=== PATIENT | female | born 1955 | race Two or more races ===

== ENCOUNTER 2016-07-01 12:11 | Inpatient (IN) | payer OTHER ==
--- NOTE | ~2016-07-01 | OR ---
Unit #: [id number] #: [id number] Patient: SCARLETT HALL [id number] [address] [address] [id number] I MR#: [id number] NAME: SCARLETT HALL. ROOM: 477 Date of Procedure: 07/01/2016 Admission Date: 07/01/2016 Surgeon: Parminder Joel M.D. : 1955 Attending Physician: Parminder Joel M.D. Primary Care Physician: Ernie Arevalo M.D. OPERATIVE REPORT PRIMARY CARE PHYSICIAN Dr. Arevalo. PREOPERATIVE DIAGNOSIS Posterior horseshoe perianal abscess. POSTOPERATIVE DIAGNOSIS Posterior horseshoe perianal abscess. PROCEDURES PERFORMED Incision and drainage. Aerobic and anaerobic cultures taken ANESTHESIA General endotracheal anesthesia. ESTIMATED BLOOD LOSS 30 mL. INDICATIONS FOR PROCEDURE A 61-year-old female with diabetes, who presents to the ER with pain and on examination, she has an abscess in the posterior midline that encircles the posterior half of the perianal area in a horseshoe fashion. DESCRIPTION OF PROCEDURE The patient was transported from the emergency room to the operating room, and after induction of general endotracheal anesthesia, she was placed in lithotomy position, prepped and draped in usual sterile fashion. On digital rectal examination, I felt the extent of the abscess and it extended from 9 o'clock to 3 o'clock around the anal verge posteriorly. On either side of the perianal area in the posterior lateral position, an incision was made. I used a hemostat to enter into the abscess cavity and a large amount of gross purulent material was returned. I digitalized the abscess cavities completely to mobilize the abscess and break down any loculations. I copiously and forcefully irrigated the area and then packed the abscess cavity with Kerlix soaked in Betadine. Anna-Pad and fishnet pants were placed. Sponges and needle counts were correct x3. The patient tolerated the procedure well and transported to recovery in stable condition. There was no family to discuss the findings with. Postoperatively, the patient will be admitted to the hospital for IV antibiotics and initiation of dressing changes in the morning. Unit #: [id number] #: [id number] Patient: SCARLETT HALL Dictated by... Naveed Lewis/liliya TD: 07/02/2016 05:46 JOB #: [id number] OPERATIVE REPORT Page 1 of 1 X Parminder Joel MD PROCEDURE OPERATIVE NOTE
--- NOTE | ~2016-07-01 | CR63 ---
[facility] A Service of [facility] RADIOLOGY TEXT RESULTS PATIENT: SCARLETT HALL LOCATION: [place] [address]- : [birth year] UNIT #: [id number] AGE: [address]: Parminder Joel MD SEX: F ORDER DR: [id number] [facility] [address] [facility]. [place], [place] [address] [id number] I MR#: [id number] Acc #: [id number] NAME: SCARLETT HALL. : 1955 SEX: F STUDY DATE/TIME: 07/03/2016 12:41 UNIT: [facility] ROOM: [facility] STUDY DESCRIPTION: CR Chest 2 View Attending Physician: Parminder Joel M.D. Ordering Physician: Parminder Joel M.D. Primary Care Physician: Ernie Arevalo M.D. MEDICAL IMAGING REPORT This report is preliminary unless electronic signature is present EXAM Chest x-ray HISTORY Shortness breath and fever, onset today. TECHNIQUE 2 views of the chest were obtained and compared with 11/11/2012. FINDINGS PA and lateral examination of the chest upright shows a good expansion of the parenchyma with a normal distribution of the pulmonary vascularity. There is no indication of congestion, effusion, infiltrate, tumor, or nodular density. The pleural reflections and diaphragmatic contours are normal. The cardiac silhouette and mediastinal anatomy is within normal limits. IMPRESSION Normal chest. Dictated by... Parminder Coronel M.D. THIS IS AN ELECTRONICALLY VERIFIED REPORT Parminder Coronel M.D. at 07/03/2016 6:02 PM SANDEEP/antoine TD: 07/03/2016 14:38 JOB #: [id number] MEDICAL IMAGING REPORT Page 1 of 1 COPY
--- NOTE | ~2016-07-01 | DS ---
Unit #: [id number] #: [id number] Patient: SCARLETT HALL [id number] [address] [place], [place] [address] [id number] I MR#: [id number] NAME: SCARLETT HALL. ROOM: 477 Age: 61 Sex: F Admission Date: 07/01/2016 : 1955 Discharge Date: 07/04/2016 Attending Physician: Parminder Joel M.D. Primary Care Physician: Ernie Arevalo M.D. DISCHARGE SUMMARY DIAGNOSIS Perirectal abscess. PROCEDURE PERFORMED Incision and drainage of perirectal abscess. HOSPITAL COURSE The patient is a 61-year-old lady, who presents with perirectal abscess complex. This was drained intraoperatively. Postop course complicated by fevers over the next 24 hours. She was reexamined. Workup was negative. She became afebrile, felt much better, was tolerating a diet with bowel function. DISPOSITION The patient will be discharged home in good condition. DISCHARGE INSTRUCTIONS She is to follow regular diet as tolerated. Activities levels were discussed. She is to follow up in 2 weeks. DISCHARGE MEDICATIONS Regular home medications, [place] 7.5 mg q.4 p.r.n., and Augmentin 875 mg b.i.d. x5 days. Dictated by... Naveed Piña/liliya TD: 07/05/2016 01:09 JOB #: [id number] DISCHARGE SUMMARY Page 1 of 1 X Valerio Hewitt MD X DISCHARGE SUMMARY
--- NOTE | ~2016-07-01 | CO ---
Unit #: [id number] #: [id number] Patient: SCARLETT MARS [id number] [address] [address] [id number] I MR#: [id number] NAME: SCARLETT MARS. ROOM: 65471 Age: 61 Sex: F Admission Date: 07/01/2016 : 1955 Attending Physician: Parminder Joel M.D. Primary Care Physician: Ernie Arevalo M.D. Consultation Date: 07/01/2016 CONSULTATION REPORT HISTORY OF PRESENT ILLNESS Ms. Mars is a pleasant 61-year-old female who presented to the ER with a several day history of perirectal discomfort, and on examination she has a fluctuant perirectal abscess. PAST MEDICAL HISTORY 1. Hypertension. 2. Diabetes. 3. Hypothyroidism. 4. Angina. 5. Previous angioplasty with cardiac stenting and says she has 11 stents total. The last stents were placed three years ago. She has recently seen her balance recesser and has been stable. 6. Hypercholesterolemia. 7. Chronic pain. 8. Cataracts removed. 9. Previous abdominal hernia repair. 10. She is 2, para 2, by vaginal delivery. 11. She has had a flu vaccine. ALLERGIES No allergies to medication. HOME MEDICATIONS 1. Hydrochlorothiazide 25 mg daily. 2. Plavix 75 mg daily. 3. Glimepiride 1 mg daily. 4. Atorvastatin 80 mg daily. 5. Meloxicam 15 mg daily. 6. Amlodipine 5 mg daily. 7. Metformin 500 mg twice daily. 8. Lisinopril 40 mg daily. 9. Metoprolol 50 mg daily. FAMILY HISTORY Diabetes and hypertension. SOCIAL HISTORY . She is currently unemployed. She quit smoking three years ago. She continues to be a social alcohol drinker. Her children are grown. REVIEW OF SYSTEMS No fever, chills, night sweats, hematemesis, hematochezia, or melena. Unit #: [id number] #: [id number] Patient: SCARLETT MARS PHYSICAL EXAMINATION VITAL SIGNS: Temperature is 98, pulse 98 and regular, respirations 16, and blood pressure 139/70. GENERAL: She is awake, alert, and oriented. HEENT: Unremarkable. CARDIAC: Regular rate and rhythm. LUNGS: Clear. ABDOMEN: Soft. RECTAL: In the posterior midline, she has a fluctuant tender abscess. EXTREMITIES: No edema. NEUROLOGIC: Grossly intact. DIAGNOSTIC STUDIES LABORATORY: Comprehensive metabolic panel is within normal limits. Hemoglobin 13.2 and white count 12,300 with 80% neutrophils and platelets are adequate at 204,000. Urinalysis negative for infection. CARDIOLOGY: EKG is pending. ASSESSMENT AND PLAN A 61-year-old female with diabetes presents with a perirectal abscess. We discussed incision and drainage under general anesthesia. We discussed postoperative expectations and dressing changes. Patient understands and agrees to proceed. Dictated by... Naveed Lewis/soha TD: 07/01/2016 15:27 JOB #: [id number] CONSULTATION REPORT Page 1 of 1 X Parminder Joel MD X CONSULTATION REPORT
--- NOTE | ~2016-07-01 | EKG ---
PATIENT: SCARLETT HALL UNIT #: [id number] Ventricular Rate: 101 BPM Atrial Rate: 101 BPM P-R Interval: 152 ms QRS Duration: 82 ms Q-T Interval: 332 ms QTC Calculation(Bezet): 430 ms P [place]: 65 degrees Calculated R [place]: 61 degrees Diagnosis Line: Sinus tachycardia Diagnosis Line: Abnormal QRS-T angle, consider primary T wave Diagnosis Line: abnormality T wave abnormality, consider inferior Diagnosis Line: ischemia Diagnosis Line: Abnormal ECG Diagnosis Line: When compared with ECG of 12-AUG-2013 06:07, Diagnosis Line: Vent. rate has increased BY 34 BPM Diagnosis Line: Nonspecific T wave abnormality no longer evident Diagnosis Line: in Lateral leads Diagnosis Line: Confirmed by ANAHY CONTI MD ([id number]) on 07/02/2016 Diagnosis Line: 9:16:45 PM INTERPRETING MD: SUSHILA FRENCH
[2016-07-01 11:19] LABS: BASOPHIL% 0.4 % (0-2.5); EOSINOPHIL% 0.2 % (0.0-7.0); HEMATOCRIT 40.3 % (35.0-45.0); HEMOGLOBIN 13.2 gm/dL (12.0-16.0); LYMPHOCYTE# 1.4 X10e3 (1.0-3.5); LYMPHOCYTE% 11.4 % (17.0-45.0); MEAN CELL VOLUME 89.2 FL (83-96); MEAN CORPUSCULAR HEMOGLOBIN 29.1 PG (28-34); MEAN CORPUSCULAR HGB CONC 32.7 g/dL (30-36); MEAN PLATELET VOLUME 7.8 FL (6.5-11.5); MONOCYTE# 1.1 X10e3 (0-1.0); MONOCYTE% 8.5 % (3.0-12.0); NEUTROPHIL# 9.8 X10e3 (1.5-7.1); NEUTROPHIL% 79.5 % (40-75); PLATELET COUNT 204 X10e3 (140-420); RED BLOOD COUNT 4.52 X10e (3.90-5.30); RED CELL DISTRIBUTION WIDTH 14.1 % (11.0-15.5); WHITE BLOOD COUNT 12.3 X10e3 (4.0-10.5)
[2016-07-01 11:22] LABS: DIFF IND NO
[2016-07-01 11:45] LABS: BILIRUBIN, DIRECT 0.1 mg/dL (0.0-0.2); BILIRUBIN,INDIRECT 0.9 mg/dL (0.0-0.9); CALCIUM SERUM 9.1 mg/dL (8.4-10.2); GLOM FILT RATE Estimated 61.2 mL/min (>60); PROTEIN TOTAL SERUM 7.3 g/dL (6.0-8.3)
[~2016-07-01 12:11] MED LIST: ASPIRIN81 M1 PO; ASPIRIN81 MG PO; B-12 DOTS500 MCG PO; BACTRIM DS TABL1 TA1 PO; BAYER ASPIRIN325 M1 PO; CRESTOR; DEXILANT60 MG PO; FISH OIL 1,0001 CAP PO; KEFLEX500 MG PO; LIPITOR20 MG DOB; LIPITOR20 MG PO; LIPITOR40 MG PO; LISINOPRIL PO; LORTAB 5/500 TA1 TA1 PO; MELATONIN1 MG; MELATONIN5 M2 PO; METOPROLOL SUCC25 MG; MULTIVITAMIN1 UDCAP PO; NITROSTAT0.4 MG SL; ONGLYZA5 MG PO; PLAVIX PO; TOPROL XL 50 MG50 MG PO; TOPROL XL PO; ZESTRIL40 MG PO; ZINC10 MG PO; ZINC15 MG
[2016-07-01 13:12] LABS: URINE SOURCE CLEAN CATCH
[2016-07-01 13:16] LABS: URINE APPEARANCE CLEAR; URINE BILIRUBIN NEG (NEG); URINE BLOOD NEG (NEG); URINE COLOR YELLOW; URINE GLUCOSE NEG (NEG); URINE KETONE NEG (NEG); URINE LEUKOCYTE ESTERASE NEG (NEG); URINE NITRATE NEG (NEG); URINE PH 6.5 (5-8); URINE PROTEIN NEG (NEG); URINE SPECIFIC GRAVITY 1.014 (1.003-1.035); URINE UROBILINOGEN 0.2 MG/DL (NEG)
[2016-07-01 13:22] LABS: CULTURE INDICATED? YES
[2016-07-01] MEDS ORDERED: HYDROCHLOROTHIA25 MG PO (18:06)
[2016-07-01] MEDS ORDERED: CLOPIDOGREL BIS75 MG PO (18:06)
[2016-07-01] MEDS ORDERED: MELOXICAM15 MG PO (18:07)
[2016-07-01] MEDS ORDERED: LIPITOR PO (18:07)
[2016-07-01] MEDS ORDERED: GLIMEPIRIDE1 M1 PO (18:07)
[2016-07-01] MEDS ORDERED: GLUCOPHAGE500 M1 PO (18:08)
[2016-07-01] MEDS ORDERED: AMLODIPINE BESYL5 MG PO (18:08)
[2016-07-01] MEDS ORDERED: ZESTRIL40 MG PO (18:09)
[2016-07-01] MEDS ORDERED: TOPROL XL PO (18:10)
[2016-07-02 04:38] LABS: HEMATOCRIT 33.5 % (35.0-45.0); MEAN CELL VOLUME 88.3 FL (83-96); MEAN CORPUSCULAR HEMOGLOBIN 28.8 PG (28-34); MEAN CORPUSCULAR HGB CONC 32.6 g/dL (30-36); RED BLOOD COUNT 3.79 X10e (3.90-5.30); RED CELL DISTRIBUTION WIDTH 14.1 % (11.0-15.5); WHITE BLOOD COUNT 11.6 X10e3 (4.0-10.5)
[2016-07-02 04:39] LABS: HEMOGLOBIN 10.9 gm/dL (12.0-16.0)
[2016-07-02 04:58] LABS: BUN/CREATININE RATIO 13.84; CALCIUM SERUM 7.9 mg/dL (8.4-10.2); CREATININE SERUM 1.3 mg/dL (0.6-1.4); GLOM FILT RATE Estimated 44.6 mL/min (>60); MAGNESIUM 1.7 mg/dL (1.6-3.0); PHOSPHOROUS 2.6 mg/dL (2.5-4.6); POTASSIUM 3.9 mmol/L (3.5-5.1)
[2016-07-03 03:54] LABS: BASOPHIL% 0.4 % (0-2.5); EOSINOPHIL% 0.4 % (0.0-7.0); HEMATOCRIT 32.5 % (35.0-45.0); HEMOGLOBIN 10.8 gm/dL (12.0-16.0); LYMPHOCYTE# 1.7 X10e3 (1.0-3.5); LYMPHOCYTE% 14.7 % (17.0-45.0); MEAN CELL VOLUME 89.5 FL (83-96); MEAN CORPUSCULAR HEMOGLOBIN 29.7 PG (28-34); MEAN CORPUSCULAR HGB CONC 33.2 g/dL (30-36); MEAN PLATELET VOLUME 8.2 FL (6.5-11.5); MONOCYTE# 1.2 X10e3 (0-1.0); MONOCYTE% 10.2 % (3.0-12.0); NEUTROPHIL# 8.7 X10e3 (1.5-7.1); NEUTROPHIL% 74.3 % (40-75); PLATELET COUNT 173 X10e3 (140-420); RED BLOOD COUNT 3.63 X10e (3.90-5.30); WHITE BLOOD COUNT 11.7 X10e3 (4.0-10.5)
[2016-07-03 03:57] LABS: DIFF IND NO
[2016-07-03 08:16] LABS: URINE SOURCE CLEAN CATCH
[2016-07-03 08:32] LABS: URINE BILIRUBIN NEG (NEG); URINE BLOOD 1+ (NEG); URINE COLOR YELLOW; URINE GLUCOSE NEG (NEG); URINE KETONE TRACE (NEG); URINE LEUKOCYTE ESTERASE TRACE (NEG); URINE NITRATE NEG (NEG); URINE PROTEIN TRACE (NEG); URINE SPECIFIC GRAVITY 1.017 (1.003-1.035); URINE UROBILINOGEN 0.2 MG/DL (NEG)
[2016-07-03 08:35] LABS: URINE BACTERIA AUWI NEG (NEGATIVE); URINE SQUAMOUS EPITHELIAL CELL NONE SEEN /[HPF]
[2016-07-04 09:49] LABS: BASOPHIL% 0.4 % (0-2.5); EOSINOPHIL# 0.2 X10e3 (0-0.7); HEMATOCRIT 33.1 % (35.0-45.0); HEMOGLOBIN 10.7 gm/dL (12.0-16.0); LYMPHOCYTE% 17.6 % (17.0-45.0); MEAN CELL VOLUME 89.5 FL (83-96); MEAN CORPUSCULAR HEMOGLOBIN 28.8 PG (28-34); MEAN CORPUSCULAR HGB CONC 32.2 g/dL (30-36); MEAN PLATELET VOLUME 7.9 FL (6.5-11.5); MONOCYTE# 0.7 X10e3 (0-1.0); NEUTROPHIL# 3.7 X10e3 (1.5-7.1); PLATELET COUNT 197 X10e3 (140-420); RED BLOOD COUNT 3.69 X10e (3.90-5.30); RED CELL DISTRIBUTION WIDTH 14.2 % (11.0-15.5)
[2016-07-04 09:52] LABS: DIFF IND NO; WHITE BLOOD COUNT 5.5 X10e3 (4.0-10.5)
[2016-07-04] MEDS ORDERED: HYDROCODON-ACE1 EAC9 PO (10:39)
[2016-07-04] MEDS ORDERED: AUGMENTIN PO (10:41)
== END 2016-07-04 12:30 | disposition home or self-care (01) | DRG 346 ==
LOC: CED 12:11 → CEDOF 14:49 → C4C 17:17
PROVIDERS: Emergency Medicine; Specialist
PROC: 0D9P0ZZ Drainage of Rectum, Open Approach (ICD-10-PCS; principal; 2016-07-01 16:00)
DX: K61.1 Rectal abscess (principal); I10 Essential (primary) hypertension; E11.9 Type 2 diabetes mellitus without complications; Z79.84 Long term (current) use of oral hypoglycemic drugs; E03.9 Hypothyroidism, unspecified; I25.119 Atherosclerotic heart disease of native coronary artery with unspecified angina pectoris; Z95.5 Presence of coronary angioplasty implant and graft; E78.00 Pure hypercholesterolemia, unspecified; G89.29 Other chronic pain; Z98.49 Cataract extraction status, unspecified eye; Z87.891 Personal history of nicotine dependence
CPT/HCPCS: 36415; 46050; 71020; 80048; 80076; 81003; 82947; 83605; 83735; 84100; 85025; 85027; 87040; 87070; 87075; 87076; 87077; 87086; 87186; 87205; 93005; 96365; 96375; 99285; J0131; J1815; J2270; J2405; J2543; J3010; J3490

== ENCOUNTER → 2016-10-13 | Outpatient (CLI) | payer OTHER ==
[~2016-10-13] MED LIST changes: +AMLODIPINE BESYL5 MG PO; +AUGMENTIN PO; +CLOPIDOGREL BIS75 MG PO; +GLIMEPIRIDE1 M1 PO; +GLUCOPHAGE500 M1 PO; +HYDROCHLOROTHIA25 MG PO; +HYDROCODON-ACE1 EAC9 PO; +LIPITOR PO; +MELOXICAM15 MG PO
--- NOTE | ~2016-10-13 | MY29 ---
[facility] A Service of [facility] RADIOLOGY TEXT RESULTS PATIENT: SCARLETT HALL LOCATION: [facility] : 57 UNIT #: [id number] AGE: [address]: Ernie Arevalo MD SEX: F ORDER DR: [id number] [facility] [address] [facility]. [place], [place] [address] [id number] O MR#: [id number] Acc #: [id number] NAME: SCARLETT HALL. : 1955 SEX: F STUDY DATE/TIME: 10/13/2016 8:35 UNIT: [facility] ROOM: STUDY DESCRIPTION: [facility] W/ CAD BILAT Attending Physician: Ernie Arevalo M.D. Referring Physician: Ernie Arevalo M.D. Ordering Physician: Ernie Arevalo M.D. Primary Care Physician: Ernie Arevalo M.D. MEDICAL IMAGING REPORT This report is preliminary unless electronic signature is present EXAM Digital screening mammogram with CAD. INDICATION Routine screening. Patient reports recent left breast trauma with bruising. PROCEDURE Bilateral CC and MLO views obtained on a digital mammography unit. FDA-approved CAD device was utilized. COMPARISON 10/12/2015 FINDINGS Scattered fibroglandular density. Previously demonstrated mass in the right breast at the 10 o'clock position is smaller now measuring 4 mm, previously 8 mm. In the left breast at approximately 3 o'clock position there is a new 7 mm focal asymmetry. This is in the area of patient's bruising. No other dominant mass and there is no suspicious calcification. IMPRESSION 1. New 7 mm focal asymmetry in the left breast at 3 o'clock position in the area of patient's bruising and recent trauma is favored to represent a small hematoma. Consider a followup left breast mammogram in 6 months to document resolution. 2. Interval decrease in size of a small mass in the right breast at the 10 o'clock position. Refer to the separately dictated right breast ultrasound for additional details and follow up recommendations. Patients over the age of 40 are entered into a reminder system with target STS. [facility] A Service of [facility] RADIOLOGY TEXT RESULTS PATIENT: SCARLETT HALL LOCATION: [facility] : 57 UNIT #: [id number] AGE: [address]: Ernie Arevalo MD SEX: F ORDER DR: due date for the next mammogram. A result letter will also be sent to the patient. BIRADS: 3 Probably benign finding; short interval follow-up suggested. Dictated by... Johnny Osorio M.D. THIS IS AN ELECTRONICALLY VERIFIED REPORT Johnny Osorio M.D. at 10/14/2016 7:10 AM VIOLETTE/estephanie TD: 10/13/2016 14:56 JOB #: [id number] MEDICAL IMAGING REPORT Page 1 of 1 COPY
--- NOTE | ~2016-10-13 | US24 ---
[facility] A Service [facility] RADIOLOGY TEXT RESULTS PATIENT: SCARLETT HALL LOCATION: [facility] : 57 UNIT #: [id number] AGE: [address]: Ernie Arevalo MD SEX: F ORDER DR: [id number] [facility] [address]. [place], [place] [address] [id number] O MR#: [id number] Acc #: [id number] NAME: SCARLETT HALL. : 1955 SEX: F STUDY DATE/TIME: 10/13/2016 9:00 UNIT: [facility] ROOM: STUDY DESCRIPTION: US Breast Unilateral Attending Physician: Ernie Arevalo M.D. Referring Physician: Ernie Arevalo M.D. Ordering Physician: Ernie Arevalo M.D. Primary Care Physician: Ernie Arevalo M.D. MEDICAL IMAGING REPORT This report is preliminary unless electronic signature is present EXAM Right breast ultrasound INDICATIONS Follow up right breast mass. PROCEDURE Targeted kitchen-scale and Doppler imaging, right breast at the 10 o'clock position. COMPARISON 10/22/2015 FINDINGS Right breast, 10 o'clock position, there is a presumed complex cyst that measures 4 mm. It previously measured up to 8 mm. No new sonographic finding. IMPRESSION Interval decrease in size of the presumed complicated cyst in the right breast at the 10 o'clock position, decreased in size since 10/22/2015. It is in keeping with a benign finding, and no additional followup is required. Patients over the age of 40 are entered into a reminder system with target due date for the next mammogram. A result letter will also be sent to the patient. BIRADS: 2 Benign finding. Dictated by... Johnny Osorio M.D. [facility] A Service [facility] RADIOLOGY TEXT RESULTS PATIENT: SCARLETT HALL LOCATION: [facility] : 57 UNIT #: [id number] AGE: [address]: Ernie Arevalo MD SEX: F ORDER DR: THIS IS AN ELECTRONICALLY VERIFIED REPORT Johnny Osorio M.D. at 10/14/2016 7:10 AM Tam TD: 10/13/2016 14:46 JOB #: [id number] MEDICAL IMAGING REPORT Page 1 of 1 COPY
== END | disposition home or self-care (01) ==
LOC: CWCC 07:44
DX: Z12.31 Encounter for screening mammogram for malignant neoplasm of breast (principal); N63 Unspecified lump in breast
CPT/HCPCS: 76641; G0202